=== PATIENT | male | born 1990 | race Hispanic/Latino ===

== ENCOUNTER 2018-03-21 05:07 | Emergency (ER) | payer OTHER ==
[~2018-03-21] VITALS: Ht 175.3 cm; Wt 72.7 kg
[2018-03-21] MEDS ORDERED: AMOXICILLIN500 M2 PO (06:02)
[2018-03-21 06:16] VITALS: BP 141/74
== END 2018-03-21 06:17 | disposition home or self-care (01) | DRG 153 ==
LOC: ED 05:07
DX: J03.90 Acute tonsillitis, unspecified (principal)